=== PATIENT | female | born 1975 | race Caucasian/White ===

== ENCOUNTER 2020-06-22 08:15 | Inpatient (IN) | payer OTHER ==
[~2020-06-22] VITALS: Ht 167.6 cm; Wt 90.7 kg
--- NOTE | ~2020-06-22 | O ---
[facility] [place] [address] OPERATIVE REPORT Name: JUSTIN HONEYCUTT Room #: 436-P [facility] IN M.R.#: [id number] Admission: 06/22/20 Attend Phys: Jenniffer Chavez DO Discharge: 06/23/20 Date of : 75 Report #: [id number] THIS REPORT FOR: cc: Florecita Stearns Linda J. DO Farris, Kari C. DO ~ CC: Jenniffer Cardoso DATE OF SERVICE: 06/22/2020 PREOPERATIVE DIAGNOSES: 1. Menorrhagia. 2. Dysmenorrhea. 3. Pelvic pain. 4. History of polycystic ovary syndrome. POSTOPERATIVE DIAGNOSES: 1. Menorrhagia. 2. Dysmenorrhea. 3. Pelvic pain. 4. History of polycystic ovary syndrome. OPERATIVE PROCEDURE: Total laparoscopic hysterectomy with bilateral salpingectomy and right oophorectomy. SURGEON: Dr. Jenniffer Cahvez. ANESTHESIA: General. INTRAVENOUS FLUIDS: 1000 mL. URINE OUTPUT: 300 mL. ESTIMATED BLOOD LOSS: 200 mL. COMPLICATIONS: None. PATHOLOGY: Uterus with cervix, bilateral fallopian tubes and right ovary. DESCRIPTION OF PROCEDURE: The patient was taken to the operating room where general anesthesia was administered and found to be adequate. She was then prepped and draped in normal sterile fashion in dorsal lithotomy position. A Escobar catheter was placed in the patient's bladder. The bladder was drained of urine. A weighted speculum was placed in the patient's vagina. [facility] [address] [place] [address] OPERATIVE REPORT Name: TANGELAJUSTIN CARSON Room #: 436-P [facility] IN M.R.#: [id number] Admission: 06/22/20 Attend Phys: Jenniffer Chavez DO Discharge: 06/23/20 Date of : 75 Report #: [id number] lip of the cervix was identified and grasped with a single tooth tenaculum. The uterus was then gently sounded to approximately 10 cm. The uterine sound was removed and the VCare uterine manipulator was placed through the cervix and gently advanced into the uterus. The balloon was inflated. The single tooth tenaculum was removed from the patient's cervix and the VCare cup was placed over the cervix and fashioned in place. The weighted speculum was then removed from the patient's vagina. Sterile gloves were changed and attention was then turned to the patient's abdomen. A 5 mm infraumbilical incision was made with a scalpel. A 5 mm trocar was placed through this incision under direct visualization of laparoscope. No insertional trauma was identified. The patient was then placed in Trendelenburg position and a pneumoperitoneum was allowed to accumulate using carbon dioxide gas. Once sufficient insufflation was noted, a second incision was placed in the patient's abdomen. In the patient's left lower quadrant, a 5 mm trocar was placed through this incision as well. This exact same procedure was performed in the right lower quadrant. No insertional trauma was identified with any other trocars. Survey of the patient's abdomen revealed a slightly enlarged uterus with normal appearing fallopian tubes as well as ovaries bilaterally. There was a small cyst on the right ovary as well as the left ovary and left ovarian cyst was drained and clear fluid was noted. The cornua of the uterus was then grasped and gently manipulated to the patient's right pelvis. Using the Sonicision, the patient's left fallopian tube was transected across the mesosalpinx. The patient's uterine-ovarian ligament was then transected using the Sonicision followed by the patient's round ligament and broad ligament. The vesicouterine peritoneum was then identified and undermined using the Sonicision device and transected to the midline. Attention was then turned to the patient's right pelvis. The uterus was again grasped at the cornual region and gently retracted to the patient's left. The Sonicision was used to transect the patient's infundibulopelvic ligament followed by the patient's round ligament and broad ligament down to the vesicouterine peritoneum. Vesicouterine peritoneum was undermined from the patient's right and transected using the Sonicision device. Excellent hemostasis was noted of bilateral pedicles. Laparoscopic Kitners were then used to bluntly dissect the vesicouterine peritoneum off the anterior aspect of the patient's cervix. Once this was performed, the patient's cardinal ligament complexes and the uterine arteries were then transected using the Sonicision device bilaterally. Again, excellent hemostasis was noted. Colposcopy was then performed at the cervicovaginal junction along the VCare cup. Using the Sonicision, once complete colpotomy was performed, the uterus as well as bilateral fallopian tubes and right ovary were then delivered into the patient's vagina. Specimen was left there to maintain a pneumoperitoneum. The pelvis was copiously irrigated with normal saline. The irrigant was then removed. The vaginal cuff as well as posterior and anterior pelvic peritoneum were then reapproximated using an EndoStitch. Prior to using the EndoStitch, the patient's left lower quadrant incision was extended slightly to allow an 11 mm port to be placed. Again, the vaginal cuff was closed using the EndoStitch. A series of 4 EndoStitch were placed in interrupted fashion. Again, the pelvis [address] [place] [address] OPERATIVE REPORT Name: JUSTIN HONEYCUTT Room #: 436-P [facility] IN M.R.#: [id number] Admission: 06/22/20 Attend Phys: Jenniffer Chavez DO Discharge: 06/23/20 Date of : 75 Report #: [id number] was copiously irrigated. All irrigant was removed. Hemostasis was noted of all pedicles as well as the vaginal cuff. Trista was then placed over the vaginal cuff. The pneumoperitoneum was allowed to escape. All trocars and instruments were removed from the patient's abdomen. All incisions were then closed with 4-0 Vicryl in an interrupted fashion. Excellent hemostasis was noted of all incisions. The specimens were then removed from the patient's vagina and sent for pathology. The patient tolerated the procedure well. Sponge, lap and needle counts were reported as correct and the patient was taken to the recovery room in stable condition. By: 1516 1616 Jenniffer Chavez DO /nt
[~2020-06-22 08:15] MED LIST: IRON325 M1 PO; STOOL SOFTENER100 M1 PO; VITAMIN D325 MCG PO
[2020-06-22 09:10] LABS: HEMATOCRIT 35.7 % (37.0-47.0); HEMOGLOBIN 12.4 gm/dL (12.0-15.0)
[2020-06-22 09:25] VITALS: BP 112/74
[2020-06-22 14:35] VITALS: BP 119/65
--- NOTE | 2020-06-22 15:28 | NUR ---
pt new to [facility] today, after she had hysterectomy. spouse at bedside. cm visit, cont to wear own face mask and shield. intro to cm, and transition of care. about 7 step into from garage, then main level and up 7 more to bedroom. independent. no medical equip. hopeful can go home by tomorrow per jeyson and spouse. dcp: home no needs.
--- NOTE | 2020-06-22 15:44 | NUR ---
[facility] accepting. They will submit for auth on Thursday. Plan skilled care PT,OT and ST. Dr Campuzano sp with son Hasmukh was amenable to skilled with transition to hospice if patient cont to decline and amenable to DNR but wanted Dr Campuzano to sp with son Dominick. Dominick works nights but Dr Campuzano attempting to reach Dominick. Updated phys no weekend discharge. Left message on [employer] cell phone of ne discharge this weekend will reeval on Thursday.
[2020-06-22 16:30] VITALS: BP 130/62
--- NOTE | 2020-06-22 19:42 | NUR ---
PT ARRIVED ON UNIT AT 1435 AT BED SIDE. PT ALERT XS 4. GIVEN PRN IBUPROFEN AND FLUIDS STARTED. PT STOOD WITH AND BED LINENS CHANGED. HAS RIOGHT HAND 20 GAUGE IV ACSESS, DRINKING FLUIDS AND IS EATING REGULAR DIET. CASIANO CATH HAD 1000 CLEAR YELLOW URINE IN CASIANO BAG. PT HAS 3 LAPSITE ON ABD WITH DERMABOND. PT IS PLEASANT AND COOPERATIVE WITH CARE. V.S 97.8 18 78 119/65 O2 SAT = 99-100 % RA
[2020-06-23 00:11] VITALS: BP 87/43
--- NOTE | 2020-06-23 02:31 | NUR ---
ASSUMED CARE OF PT AT 1900. PT IS A/O X4 AND IS UP WITH ASSIST. KPAD PLACED ON ABDOMEN A REQUEST FROM PT FOR COMFORT. C/O PAIN TO ABDOMEN. PRN PAIN MEDICATION GIVEN DIRECTED. LAP SITES C/D/I. CASIANO IN PLACE AND PATENT. DOES APPEAR TO HAVE CAUSE TRAUMA THERE IS SMALL AMOUNT OF BLOODY DRAINAGE COMING FROM THE VAGINA. REPLACED STAT LOCK WITH TAPE CLOSER TO ENSURE CATHETER IS NOT BEING PULLED. PT AT THIS TIME IS CURRENTLY LYING IN BED AND APPEARS TO BE SLEEPING. SCD'S AND FALL PRECAUTIONS ARE IN PLACE. WILL CONTINUE TO MONITOR.
[2020-06-23 05:47] LABS: HEMATOCRIT 32.6 % (37.0-47.0); HEMOGLOBIN 10.7 gm/dL (12.0-15.0); MCH 29.3 pg (26.0-34.0); MCHC 32.9 g/dL (28.0-37.0); MCV 89.1 fL (80.0-100.0); RBC 3.66 mil/uL (4.20-5.00); RDW 13.4 % (10.5-14.5); WBC 11.5 thou/uL (4.0-11.0)
[2020-06-23 06:07] LABS: ALBUMIN 2.9 g/dL (3.4-5.0); CREATININE 0.8 mg/dL (0.6-1.0); TOTAL BILIRUBIN 0.4 mg/dL (0.2-1.0); TOTAL PROTEIN 6.3 g/dL (6.4-8.2)
--- NOTE | 2020-06-23 07:12 | NUR ---
PATIENT RESTING IN BED DR BARRAGAN HERE TO SEE PATIENT. STATES WE MAY DC CASIANO. AND LONG PATIENT IS PAIN MANAGED EATING AMBULATING AND VOIDING WE WILL TRY TO DC HOME TODAY.
[2020-06-23] MEDS ORDERED: IBUPROFEN 400400 M2 PO (07:13)
[2020-06-23] MEDS ORDERED: HYDROCODON-ACE1 EAC7 PO (07:13)
--- NOTE | 2020-06-23 07:31 | NUR ---
REMOVED CASIANO CATH AT THIS TIME WITH MINIMAL DISCOMFORT TO PATIENT. 100 CC CLEAR YELLOW URINE IN CASIANO BAG.
[2020-06-23 08:28] VITALS: BP 97/52
[2020-06-23 12:36] VITALS: BP 97/52
--- NOTE | 2020-06-23 12:52 | NUR ---
DISCHARGE PAPERS REVIEWED WITH PATIENT SIGNED AND COPY IN CHART. IV ACSESS DCD ALL BELONGINGS PACKED AND WILL BE SENT WITH PATIENT.
[2020-06-23 13:05] VITALS: BP 97/52
--- NOTE | 2020-06-25 18:06 | PATH ---
[facility] [address] PATHOLOGY RPT PROCEDURE Name: JUSTIN TAN Room #: 436-P [facility] IN M.R.#: [id number] Admission: 06/22/20 Date of : 75 Discharge: 06/23/20 Report #: [id number] Path Case #: [id number] [facility] Accession Number: [id number] . 01 Material submitted: . uterus - UTERUS, BILATERAL TUBES, RIGHT OVARY. Modifiers: bilateral, right . 01 Clinical history: . HEAVY VAGINAL BLEEDING . 02 Diagnosis: Uterus, bilateral tubes, right ovary, hysterectomy with right oophorectomy and bilateral salpingectomy: - Late secretory phase endometrium; negative for hyperplasia or malignancy. - Extensive adenomyosis with endometrial cyst present on serosal surface. - Mild acute and chronic cervicitis; negative for dysplasia. - Right ovary with hemorrhagic follicular cyst as well as physiologic changes. - Right fallopian tube with endosalpingosis as well as congestion. (IUV:pit 06/25/2020) QTP 06/25/2020 1607 Local . 02 Electronically signed: . Alecia Rehman MD, Pathologist NPI- [id number] . 01 Gross description: . The specimen is received in formalin labeled "Justin Tan, uterus, bilateral tubes, right ovary". Received is a 114 g, 9.5 x 5.6 x 4.7 cm uterus with attached cervix, attached left fallopian tube weighing 2 g, and attached right adnexa weighing 6 g. The uterine serosa is pink-dacosta in appearance displaying several serosal nodules ranging in size from 0.3 to 0.6 cm. The 0.8 cm cervical os is surrounded by pink-yarbrough to red-brown, smooth ectocervical mucosa. The uterus is oriented using the peritoneal reflection and the anterior paracervical margin is inked black. The uterus is opened laterally to reveal a pink-dacosta, corrugated endocervical canal measuring 2.9 cm in length. The endometrial cavity is triangular measuring 4.9 cm in length by 2.4 cm in width. The endometrium is dacosta-pink, glistening to slightly hemorrhagic in appearance and measures 0.1 cm in thickness. Serial sectioning reveals a dacosta-pink, trabeculated myometrium measuring up to 2.2 cm in thickness displaying a slight amount of possible adenomyosis. . The left fimbriated fallopian tube measures 4.7 cm in length by 0.5 cm in diameter. Sectioning reveals a pinpoint to patent lumen, and the fallopian tube appears grossly unremarkable. [address] [address] PATHOLOGY RPT PROCEDURE Name: JUSTIN TAN Room #: 436-P [facility] IN M.R.#: [id number] Admission: 06/22/20 Date of : 75 Discharge: 06/23/20 Report #: [id number] Path Case #: [id number] . The right adnexa consists of a fimbriated fallopian tube measuring 5.1 cm in length by up to 0.6 cm in diameter attached to a 3.0 x 2.2 x 1.1 cm ovary. Sectioning through the fallopian tube reveals a patent lumen and the fallopian tube appears grossly unremarkable. Sectioning through the ovary reveals several cystic structures ranging in size from 0.4 to 0.6 cm filled with clear fluid. The remaining cut surfaces display pale dacosta, normal ovarian stroma. The specimen is submitted representatively as follows: . A1 12:00 cervix A2 6:00 cervix A3 serosal nodules A4 anterior endomyometrium with possible adenomyosis A5 posterior endomyometrium A6 provider relations representative section of possible adenomyosis near left cornu A7 left fallopian tube A8 right adnexa. (CAA; 06/23/2020) QA/[facility] 06/23/2020 1735 Local . 02 Pathologist provided ICD-10: N80.0, N72, N83.01, N94.89 . 02 CPT . 815229 Specimen Comment: A courtesy copy of this report has been sent to [phone] Specimen Comment: [phone], Specimen Comment: Report sent to ,DR CHURCHILL / DR ROJAS Performed at: [address], [place], [place] [id number] MD Amadeo Fairbanks MD Phone: [phone] Performed at: [address] [id number] MD Alecia Rehman MD Phone: [phone]
== END 2020-06-23 13:13 | disposition home or self-care (01) | DRG 743 ==
LOC: OR 08:15 → TBA 08:15 → OR 08:20 → 4S 14:58 → OR 15:03 → 4S 06-23 13:13
PROVIDERS: ADMIT Obstetrics & Gynecology; ATTEND Obstetrics & Gynecology
DX: N80.9 Endometriosis, unspecified (principal); N94.6 Dysmenorrhea, unspecified; N92.0 Excessive and frequent menstruation with regular cycle
CPT/HCPCS: 10102; 50010; 50101; 50386; 50400; 50455; 50555; 50558; 50685; 50900; 50962; 51489; 52265; 52287; 53307; 54118; 55245; 55326; 56462; 56526; 56531; 62110; 62900; 70005